=== PATIENT | male | born 1970 | race Caucasian/White ===

== ENCOUNTER 2017-01-20 02:41 | Emergency (ER) | payer OTHER ==
--- NOTE | ~2017-01-20 | CR181 ---
[facility] A Service of [facility] & [facility] RADIOLOGY TEXT RESULTS PATIENT: JOVANI ENRIQUEZ JR LOCATION: [place] : 66 UNIT #: [id number] AGE: [address]: Yvan Sorensen MD SEX: M ORDER DR: [id number] [facility] [address] [place], [place] [address] [id number] MR#: [id number] Acc #: [id number] NAME: JOVANI ENRIQUEZ : 1970 SEX: M STUDY DATE/TIME: 01/20/2017 3:16 UNIT: [facility] ROOM: STUDY DESCRIPTION: CR Lumbar Spine 2 or 3 Views Attending Physician: Yvan Sorensen M.D. Ordering Physician: Yvan Sorensen M.D. Primary Care Physician: Eleonora Ayala MEDICAL IMAGING REPORT This report is preliminary unless electronic signature is present EXAM Lumbar spine 3-view series INDICATION Low back pain after lifting a generator yesterday. FINDINGS 3 views of the lumbar spine were obtained. There is disc space narrowing at L5-S1 with anterior osteophyte formations. The other disc spaces are normal. The alignment is normal. IMPRESSION Isolated degenerative change at L5-S1, otherwise the study is normal. Dictated by... Terrance Bradley M.D. THIS IS AN ELECTRONICALLY VERIFIED REPORT Terrance Bradley M.D. at 01/21/2017 5:00 AM Sb TD: 01/21/2017 04:34 JOB #: [id number] MEDICAL IMAGING REPORT Page 1 of 1 COPY
[~2017-01-20 02:41] MED LIST: ALBUTEROL17 GM INH; E-MYCIN250 MG PO; FLEXERIL PO; PHENERGAN PO; PREDNISONE PO
== END 2017-01-20 03:52 | disposition home or self-care (01) ==
LOC: CED 02:41
DX: S39.012A Strain of muscle, fascia and tendon of lower back, initial encounter (principal); X50.9XXA Other and unspecified overexertion or strenuous movements or postures, initial encounter
CPT/HCPCS: 72100; 96372; 99283; J1885

== ENCOUNTER 2017-01-26 09:59 | Emergency (ER) | payer OTHER ==
[~2017-01-26] VITALS: Ht 182.9 cm; Wt 81.6 kg
== END 2017-01-26 12:30 | disposition left against medical advice (07) ==
LOC: CED 09:59
DX: Z53.21 Procedure and treatment not carried out due to patient leaving prior to being seen by health care provider (principal)

== ENCOUNTER 2017-03-24 04:40 | Emergency (ER) | payer OTHER | END 2017-03-24 05:25 | disposition home or self-care (01) | LOC: CED 04:40 | DX: L03.113 Cellulitis of right upper limb (principal); J45.909 Unspecified asthma, uncomplicated; F17.200 Nicotine dependence, unspecified, uncomplicated; Z86.19 Personal history of other infectious and parasitic diseases | CPT/HCPCS: 99283 ==